=== PATIENT | female | born 1990 | race Caucasian/White ===

== ENCOUNTER 2019-02-19 17:42 | Emergency (ER) | payer BC ==
[~2019-02-19] VITALS: Ht 160 cm; Wt 65.0 kg
[2019-02-19 17:45] VITALS: BP 121/87
== END 2019-02-19 18:48 | disposition home or self-care (01) ==
LOC: ER 17:43
DX: S61.241A Puncture wound with foreign body of left index finger without damage to nail, initial encounter (principal); W46.0XXA Contact with hypodermic needle, initial encounter; Y93.89 Activity, other specified; Y92.89 Other specified places as the place of occurrence of the external cause; Y99.8 Other external cause status
CPT/HCPCS: 99283